=== PATIENT | male | born 1960 | race Caucasian/White ===

== ENCOUNTER 2017-04-09 23:26 | Emergency (ER) | payer OTHER ==
--- NOTE | ~2017-04-09 | EKG ---
PATIENT: SURI MOCK UNIT #: [id number] Ventricular Rate: 81 BPM Atrial Rate: 81 BPM P-R Interval: 118 ms QRS Duration: 90 ms Q-T Interval: 390 ms QTC Calculation(Bezet): 453 ms P [place]: 72 degrees Calculated R [place]: 78 degrees Calculated T [place]: 80 degrees Diagnosis Line: Normal sinus rhythm Diagnosis Line: Normal ECG Diagnosis Line: No previous ECGs available Diagnosis Line: Confirmed by ZULEMA ANDERSEN MD ([id number]) on Diagnosis Line: 04/11/2017 10:45:34 AM INTERPRETING MD: [email or web address]
--- NOTE | ~2017-04-09 | CR72 ---
[facility] A Service of [facility] & [facility] RADIOLOGY TEXT RESULTS PATIENT: SURI MOCK LOCATION: [facility] : 56 UNIT #: [id number] AGE: [address]: Ekaterina Taylor MD SEX: M ORDER DR: [id number] [facility] [address] [place], [place] [address] [id number] MR#: [id number] Acc #: [id number] NAME: SURI MOCK : 1960 SEX: M STUDY DATE/TIME: 04/10/2017 0:43 UNIT: [facility] ROOM: STUDY DESCRIPTION: CR Chest Single View Portable Attending Physician: Ekaterina Taylor M.D. Ordering Physician: Jatin Christianson M.D. Primary Care Physician: Primary Care Physician No MEDICAL IMAGING REPORT This report is preliminary unless electronic signature is present EXAM Portable chest INDICATIONS Chest pain and shortness of air tonight PROCEDURE Frontal view chest COMPARISON 04/01/2017 FINDINGS Heart size is within normal limits. Emphysema. No dense consolidation, pleural fluid or pneumothorax. IMPRESSION No active process Dictated by... Cesar Mills M.D. THIS IS AN ELECTRONICALLY VERIFIED REPORT Cesar Mills M.D. at 04/10/2017 9:54 PM EED/to TD: 04/10/2017 12:04 JOB #: [id number] MEDICAL IMAGING REPORT Page 1 of 1 COPY
[2017-04-10 00:13] LABS: POC - CKMB 2.5 ng/mL (0.0-7.9); POC - TROPONIN <0.05 ng/mL (<=0.05)
[2017-04-10 00:23] LABS: BASOPHIL% 0.7 % (0-2.5); EOSINOPHIL# 0.1 X10e3 (0-0.7); EOSINOPHIL% 1.4 % (0.0-7.0); HEMATOCRIT 42.6 % (38.0-50.0); HEMOGLOBIN 14.1 gm/dL (13.0-16.0); LYMPHOCYTE# 1.3 X10e3 (1.0-3.5); LYMPHOCYTE% 28.9 % (17.0-45.0); MEAN CELL VOLUME 98.6 FL (83-96); MEAN CORPUSCULAR HEMOGLOBIN 32.5 PG (28-34); MEAN PLATELET VOLUME 7.8 FL (6.5-11.5); MONOCYTE# 0.5 X10e3 (0-1.0); MONOCYTE% 10.8 % (3.0-12.0); NEUTROPHIL# 2.6 X10e3 (1.5-7.1); NEUTROPHIL% 58.2 % (40-75); PLATELET COUNT 148 X10e3 (140-420); RED BLOOD COUNT 4.32 X10e (3.90-5.60); RED CELL DISTRIBUTION WIDTH 14.1 % (11.0-15.5); WHITE BLOOD COUNT 4.5 X10e3 (4.0-10.5)
[2017-04-10 00:27] LABS: DIFF IND NO
[2017-04-10 00:51] LABS: ALBUMIN SERUM 3.9 g/dL (3.5-5.0); BILIRUBIN, DIRECT 0.1 mg/dL (0.0-0.2); BILIRUBIN,INDIRECT 0.5 mg/dL (0.0-0.9); BILIRUBIN,TOTAL 0.6 mg/dL (0.2-2.0); BUN/CREATININE RATIO 8.75; CALCIUM SERUM 8.2 mg/dL (8.4-10.2); CREATININE SERUM 0.8 mg/dL (0.6-1.4); GLOM FILT RATE Estimated 97.8 mL/min (>60); PROTEIN TOTAL SERUM 6.8 g/dL (6.0-8.3)
[2017-04-10 02:09] LABS: POC - CKMB 2.6 ng/mL (0.0-7.9); POC - TROPONIN <0.05 ng/mL (<=0.05)
== END 2017-04-10 10:49 | disposition home or self-care (01) ==
LOC: CED 23:26
PROVIDERS: Emergency Medicine
DX: R07.89 Other chest pain (principal); F10.129 Alcohol abuse with intoxication, unspecified; I95.1 Orthostatic hypotension; J44.9 Chronic obstructive pulmonary disease, unspecified; F17.200 Nicotine dependence, unspecified, uncomplicated
CPT/HCPCS: 36415; 71010; 80048; 80076; 82553; 84484; 85025; 93005; 99285; G0480